=== PATIENT | male | born 2000 | race African-American/Black ===

== ENCOUNTER 2024-01-01 15:40 | Emergency (ER) | payer MEDICAID ==
[~2024-01-01] VITALS: Ht 193 cm; Wt 96.0 kg
[2024-01-01 15:50] VITALS: O2SAT 99
[2024-01-01] MEDS ORDERED: ACETAMINOPHEN 325MG TABLET PO ONE (18:45)
[2024-01-01] MEDS ORDERED: KETOROLAC 30MG/ML VIAL IM ONE (18:45)
[2024-01-01 20:30] VITALS: BP 136/78; PULSE 79; RESP 14; TEMP 37.11408; O2SAT 98
[2024-01-01] MEDS: KETOROLAC 30MG/ML VIAL IM NR (20:36)
[2024-01-01] MEDS: ACETAMINOPHEN 325MG TABLET PO NR (20:36)
== END 2024-01-01 20:38 | disposition home or self-care (01) ==
LOC: ER 15:40
DX: S49.91XA Unspecified injury of right shoulder and upper arm, initial encounter (principal); S09.90XA Unspecified injury of head, initial encounter; M25.511 Pain in right shoulder; J45.909 Unspecified asthma, uncomplicated; V49.49XA Driver injured in collision with other motor vehicles in traffic accident, initial encounter; Y93.89 Activity, other specified; Y92.89 Other specified places as the place of occurrence of the external cause; Y99.8 Other external cause status
CPT/HCPCS: 73030; 99283